=== PATIENT | female | born 1990 | race African-American/Black ===

== ENCOUNTER 2023-09-10 12:39 | Inpatient (IN) | payer MEDICAID ==
[~2023-09-10] VITALS: Ht 170.2 cm; Wt 70.1 kg
[2023-09-10] MEDS ORDERED: NO MEDS PO (13:14)
[2023-09-10 13:31] LABS: GLUCOMETER DEV NAME(LOC) POC.BV; POC SARS-COV2 AG, FIA NEGATIVE (NEGATIVE)
[2023-09-10] MEDS ORDERED: INFLUENZA VIRUS VACCINE QVS 2023-24 (6MO+)/PF 60 MCG/0.5 ML SYRINGE IM. ONE (14:00)
[2023-09-10 14:18] VITALS: BP 139/87; PULSE 93; RESP 19; TEMP 97.8; O2SAT 100
[2023-09-10] MEDS: LORazepam 2 MG TABLET PO PRN (14:20)
[2023-09-10] MEDS: HALOPERIDOL 5 MG TABLET PO PRN (14:21)
[2023-09-10 20:03] VITALS: BP 123/78; PULSE 89; RESP 18; TEMP 98.2
[2023-09-10] MEDS: OLANZapine 5 MG TABLET PO SCH (20:22)
[2023-09-10] MEDS: ZOLPIDEM TARTRATE 10 MG TABLET PO PRN (20:23)
[2023-09-11] MEDS ORDERED: ACETAMINOPHEN 325 MG TABLET PO PRN (06:15)
[2023-09-11] MEDS ORDERED: ALBUTEROL SULFATE HFA 90 MCG/PUFF 8 GM INHALER IH PRN (06:15)
[2023-09-11] MEDS ORDERED: ONDANSETRON HCL 4 MG TABLET PO PRN (06:15)
[2023-09-11] MEDS ORDERED: BENZOCAINE/MENTHOL LOZENGE PO PRN (06:15)
[2023-09-11] MEDS ORDERED: MAG HYDROX/ALUMINUM HYD/SIMETH ES 30 ML SUSPENSION UDCUP PO PRN (06:15)
[2023-09-11] MEDS ORDERED: PETROLATUM,WHITE 28 GM JELLY TP PRN (06:15)
[2023-09-11] MEDS ORDERED: OMEPRAZOLE 20 MG CAPSULE PO PRN (06:15)
[2023-09-11] MEDS ORDERED: LOPERAMIDE HCL 2 MG CAPSULE PO PRN (06:15)
[2023-09-11] MEDS ORDERED: CloNIDine HCL 0.1 MG TABLET PO PRN (06:15)
[2023-09-11] MEDS ORDERED: IBUPROFEN 600 MG TABLET PO PRN (06:15)
[2023-09-11] MEDS ORDERED: BACITRACIN 28 GM OINTMENT TP PRN (06:15)
[2023-09-11] MEDS ORDERED: MAGNESIUM HYDROXIDE SUSPENSION 30 ML UDCUP PO PRN (06:15)
[2023-09-11] MEDS ORDERED: DOCUSATE SODIUM 100 MG CAPSULE PO PRN (06:15)
[2023-09-11] MEDS: LORazepam 2 MG TABLET PO PRN (08:08)
[2023-09-11] MEDS: HALOPERIDOL 5 MG TABLET PO PRN (08:09)
[2023-09-11 10:07] VITALS: BP 130/84; PULSE 98; RESP 16; TEMP 97.8; O2SAT 99
[2023-09-11] MEDS: OLANZapine 5 MG TABLET PO SCH (20:09)
[2023-09-11 20:51] VITALS: BP 133/90; PULSE 107; RESP 16; TEMP 97.7; O2SAT 99
[2023-09-12] MEDS: ZOLPIDEM TARTRATE 10 MG TABLET PO PRN (00:27)
[2023-09-12] MEDS: LORazepam 2 MG TABLET PO PRN ×2 (03:13→08:21)
[2023-09-12] MEDS: HALOPERIDOL 5 MG TABLET PO PRN ×2 (03:13→08:21)
[2023-09-12 08:17] LABS: BASOPHILS % (AUTO) 0.4 % (0.0-2.0); EOSINOPHILS % (AUTO) 0.3 % (1.0-6.0); HEMATOCRIT 39.2 % (36-46); HEMOGLOBIN 13.5 g/dL (12.0-16.0); LYMPHOCYTES # (AUTO) 1.7 K/uL (1.0-4.8); LYMPHOCYTES % (AUTO) 22.6 % (22.0-44.0); MEAN CORPUSCULAR HEMOGLOBIN 34.6 pg (26.0-34.0); MEAN CORPUSCULAR HGB CONC 34.5 G/dL (31.0-37.0); MEAN CORPUSCULAR VOLUME 100 fL (80-100); MONOCYTES # (AUTO) 0.5 K/uL (0.1-1.0); NEUTROPHILS # (AUTO) 5.4 K/uL (1.8-7.7); NEUTROPHILS % (AUTO) 69.7 % (40.0-70.0); PLATELET COUNT (AUTO) 239 K/uL (150-450); RED BLOOD CELL COUNT(AUTO) 3.91 MIL/uL (4.00-5.20); RED CELL DISTRIBUTION WIDTH 12.7 % (11.5-14.5); WHITE BLOOD COUNT (AUTO) 7.7 K/uL (4.5-11.0)
[2023-09-12 08:18] LABS: APPEARANCE,URINE CLEAR (CLEAR); BILIRUBIN,URINE NEGATIVE (NEGATIVE); COLOR,URINE LIGHT YELLOW (YELLOW); GLUCOSE, URINE (UA) NEGATIVE (NEGATIVE); KETONES,URINE NEGATIVE (NEGATIVE); LEUKOCYTE ESTERASE ,URINE NEGATIVE (NEGATIVE); NITRATE,URINE NEGATIVE (NEGATIVE); OCCULT BLOOD,URINE NEGATIVE (NEGATIVE); PROTEIN,URINE NEGATIVE (NEGATIVE); SPECIFIC GRAVITIY, URINE 1.009 (1.003-1.030); UROBILINOGEN,URINE <=1.0 mg/dL (<=1.0)
[2023-09-12 08:24] LABS: AMPHET/METH SCREEN,URINE NEGATIVE (NEGATIVE); BARBITURATE SCREEN, URINE NEGATIVE (NEGATIVE); BENZODIAZEPINES SCREEN,URINE NEGATIVE (NEGATIVE); CANNABINOID SCREEN,URINE POSITIVE (NEGATIVE); COCAINE SCREEN,URINE NEGATIVE (NEGATIVE); METHADONE SCREEN, URINE NEGATIVE (NEGATIVE); OPIATE SCREEN,URINE NEGATIVE (NEGATIVE); PHENCYCLIDINE SCREEN,URINE NEGATIVE (NEGATIVE)
[2023-09-12 08:26] LABS: RBC MORPHOLOGY COMMENT ABNORMAL RBC MORPH
[2023-09-12 08:30] VITALS: BP 123/79; PULSE 100; RESP 18; TEMP 97.8; O2SAT 98
[2023-09-12 08:38] LABS: ALCOHOL, URINE DRUG SCREEN NEGATIVE (NEGATIVE)
[2023-09-12 08:52] LABS: ALANINE AMINOTRANSFERASE 32 U/L (12-78); ALBUMIN 3.3 g/dL (3.4-5.0); ALKALINE PHOSPHATASE 61 U/L (46-116); ANION GAP 8 mmol/L (8-16); ASPARTATE AMINOTRANSFERASE 19 U/L (15-37); BILIRUBIN,TOTAL 0.3 mg/dL (0.1-1.0); CARBON DIOXIDE 26 mmol/L (22-29); CHLORIDE 101 mmol/L (98-107); CHOL/HDL RATIO 2.3 (3.9-5.7); CHOLESTEROL 110 mg/dL (131-200); CREATININE 0.63 mg/dL (0.60-1.30); GLOMERULAR FILTR. RATE CALC > 60 mL/min (>60); GLUCOSE,RANDOM 83 mg/dL (70-110); HDL CHOLESTEROL 48 mg/dL (40-60); LDL CHOL (CALC.) 52 mg/dL (0-130); PHOSPHORUS 4.7 mg/dL (2.5-4.9); POTASSIUM 3.6 mmol/L (3.5-5.1); SODIUM SERUM 135 mmol/L (136-145); THYROID STIMULATING HORMONE 3.92 uIU/mL (0.36-3.74); TOTAL PROTEIN, SERUM 7.4 g/dL (6.4-8.2); TRIGLYCERIDES 49 mg/dL (15-150); UREA NITROGEN, BLOOD 8 mg/dL (7-18)
[2023-09-12 08:56] LABS: HEMOGLOBIN A1C 4.8 % (3.8-5.6)
[2023-09-12] MEDS: OLANZapine 5 MG TABLET PO SCH (20:05)
[2023-09-12 21:05] VITALS: BP 131/87; PULSE 98; RESP 18; TEMP 97.6; O2SAT 98
[2023-09-13] MEDS: LORazepam 2 MG TABLET PO PRN (08:20)
[2023-09-13 08:36] VITALS: BP 128/81; PULSE 98; RESP 18; TEMP 96.3; O2SAT 98
== END 2023-09-13 14:30 | disposition home or self-care (01) | DRG 753 ==
LOC: B3A 13:00
PROVIDERS: ADMIT Psychiatry & Neurology Psychiatry; ATTEND Psychiatry & Neurology Psychiatry
DX: F31.9 Bipolar disorder, unspecified (principal); F41.9 Anxiety disorder, unspecified; G47.00 Insomnia, unspecified; F94.0 Selective mutism; Z20.822 Contact with and (suspected) exposure to COVID-19
CPT/HCPCS: 80053; 80061; 80307; 81003; 83036; 83735; 84100; 84443; 84703; 85025; 90686